=== PATIENT | female | born 1960 | race Caucasian/White ===

== ENCOUNTER 2018-11-20 17:45 | Emergency (ER) | payer MEDICARE, OTHER ==
[~2018-11-20] VITALS: Ht 160 cm; Wt 104.3 kg
[~2018-11-20 17:45] MED LIST: ASPIRIN EC325 M1 PO; ASPIRIN EC81 M1 PO; ASPIRIN81 M2 PO; CELEBREX 200 M200 M1 PO; CYMBALTA30 MG PO; CYMBALTA60 MG PO; FLEXERIL PO; FLONASE; IBUPROFEN 800800 M1 PO; KEFLEX500 MG PO; LIDODERM 5%1 PATCH TOP; LYRICA150 MG PO; LYRICA200 MG PO; NEURONTIN600 MG PO; OXYCODONE HCL15 MG PO; OXYCONTIN40 MG PO; OXYCONTIN60 MG PO; PROVENTIL; REGLAN 5 MG TAB5 M1 PO; RELAFEN750 MG PO; RELPAX40 MG PO; REQUIP5 MG PO; VICOPROFEN 2001 EACH PO; [UNRECOGNIZED DRUG - CODE] TOP
[2018-11-20] MEDS ORDERED: PERCOCET PO (18:05)
[2018-11-20] MEDS ORDERED: NEURONTIN 300300 M1 PO (18:05)
[2018-11-20] MEDS ORDERED: PERCOCET 5-3251 EACH PO (19:40)
[2018-11-20 19:51] VITALS: BP 158/78
== END 2018-11-20 19:52 | disposition home or self-care (01) ==
LOC: M.ERS 17:45
DX: S90.32XA Contusion of left foot, initial encounter (principal); S90.31XA Contusion of right foot, initial encounter; F32.9 Major depressive disorder, single episode, unspecified; M19.90 Unspecified osteoarthritis, unspecified site; Z88.5 Allergy status to narcotic agent; Z88.2 Allergy status to sulfonamides; Z88.1 Allergy status to other antibiotic agents; Z88.6 Allergy status to analgesic agent; X50.9XXA Other and unspecified overexertion or strenuous movements or postures, initial encounter; Y93.89 Activity, other specified; Y92.89 Other specified places as the place of occurrence of the external cause; Y99.8 Other external cause status

== ENCOUNTER → 2019-06-13 | Outpatient (CLI) | payer MEDICARE, OTHER ==
[~2019-06-13] MED LIST changes: +NEURONTIN 300300 M1 PO; +PERCOCET 5-3251 EACH PO; +PERCOCET PO; +REQUIP 1 MG TABL1 M1 PO; -REQUIP5 MG PO
== END ==
LOC: M.PC 05:15
DX: G89.4 Chronic pain syndrome (principal); M47.816 Spondylosis without myelopathy or radiculopathy, lumbar region; M51.36 Other intervertebral disc degeneration, lumbar region; Z79.891 Long term (current) use of opiate analgesic; Z79.899 Other long term (current) drug therapy

== ENCOUNTER 2019-12-01 15:20 | Emergency (ER) | payer MEDICARE, OTHER ==
[~2019-12-01] VITALS: Ht 160 cm; Wt 108.9 kg
[2019-12-01 16:56] VITALS: BP 127/72
== END 2019-12-01 17:02 | disposition home or self-care (01) ==
LOC: M.ERS 15:20
DX: S90.32XA Contusion of left foot, initial encounter (principal); M19.90 Unspecified osteoarthritis, unspecified site; Z88.6 Allergy status to analgesic agent; Z88.2 Allergy status to sulfonamides; Z88.1 Allergy status to other antibiotic agents; Z88.5 Allergy status to narcotic agent; W22.8XXA Striking against or struck by other objects, initial encounter; Y93.89 Activity, other specified; Y92.89 Other specified places as the place of occurrence of the external cause; Y99.8 Other external cause status

== ENCOUNTER → 2019-12-26 | Outpatient (CLI) | payer MEDICARE, OTHER | LOC: M.PC 04:14 | DX: M51.36 Other intervertebral disc degeneration, lumbar region (principal); M47.816 Spondylosis without myelopathy or radiculopathy, lumbar region; M79.604 Pain in right leg; M79.605 Pain in left leg; M79.672 Pain in left foot; M79.671 Pain in right foot; Z79.899 Other long term (current) drug therapy ==